=== PATIENT | female | born 1940 | race Caucasian/White ===

== ENCOUNTER 2016-08-07 15:15 | Outpatient (RCR) | payer MEDICARE ==
--- NOTE | 2016-07-14 14:24 | PT/OT/ST INITIAL EVALUATION ---
Department of Health and Human Services Form Approved [facility] Care Financing Administration OMB No. [id number] PLAN OF CARE/ASSESSMENT FOR OUTPATIENT REHABILITATION (Complete for Initial Claims Only) 1. PATIENT'S NAME Ladi Bo 2. ACC # [id number] [facility]. [facility] [id number] 4. PROVIDER NO. [id number] 5. TYPE: PT 6. PRIOR HOSPITALIZATION NA 7. PRIMARY DX Neck pain with left upper extremity radiculopathy. 8. SECONDARY DX NA 9. ONSET DATE Approximately 1 month ago 10. REFERRAL DATE NA 11. SOC. DATE 07/09/2016 12. TIME OF EVAL 10:06 a.m. 12. REFERRING PHYSICIAN Bel Crow PA-C 13. CHARGES/UNITS NA 14. G CODES [id number] 15. PRIOR LEVEL OF FUNCTION; PERTINENT HISTORY (Prior therapy results, reason for referral.) S: Prior to therapy, the patient did consent to today's evaluation and treatment. The patient is a 76-year-old female referred to physical therapy by Bel Crow PA-C to address neck pain with left upper extremity radiculopathy. The patient does rate her overall and general health as good. Description/mechanism of injury: The patient states she is right handed, but approximately 1 month ago began experiencing neck pain. Following the onset of this neck pain, for unknown reasons, the patient began to then have left shoulder pain and she began having pain that went down her entire arm down to her thumb at times. The patient does state this is gradually worsening over time and her neck and shoulder feel "tight." The patient states the pain down her arm is present approximately 50% of the time, but the neck is always stiff and tight feeling with pain present. The patient denies reports of weakness in the left upper extremity and does state moving her head does always bring on her symptoms. Prior level of function: Includes the patient being unlimited in all activity with no neck pain or left upper extremity pain. Current level of function: Currently thee patient is having difficulty getting settled at night in order to go to sleep and any activities that she has to perform, either looking over her shoulder with her neck or reaching overhead wither arms, does increase her pain and symptoms down the left upper extremity. Therapy History: The patient has had no previous physical therapy for this condition. Obstacles to delivery of care are not observed. Pain rating: Maximal pain level of the neck is 5/10 and is constant and the arm is 6/10 and present approximately 50% of the time. The patient describes the pain in the neck as a "stiff feeling" and the arm feels like it is asleep. Aggravating factors: Include bending her head forward. Relieving factors: Include Tylenol and heat. Diagnostic testing: Include an x-ray of the shoulder, which showed no issues. Past medical history: Does include osteoarthritis, previous rotator cuff surgeries, carpal tunnel release, thyroid issues and GERD. Current medications: The patient has provided a list of medications, which is included in the chart. Patient's Goal: The patient's goal for physical therapy is to have normal use of the left upper extremity with no radicular symptoms. 16. INITIAL ASSESSMENT/SAFETY PRECAUTIONS/MEDICAL COMPLICATIONS (Level of function at start of care. Be specific, use objective measures, list problems.) O: APPEARANCE AND OBSERVATION: The patient presents as an older female in apparently healthy condition. She does present to physical therapy with rounded shoulders and slightly forward head. PALPATION: With palpation the patient does have significant increased tone through the left upper trap and levator, as well as at the cervical spine paraspinals. SPECIAL TESTS: Include side-glides, which were within functional limits with no symptom reproduction. The patient did have a positive Spurling test, especially to the left. The patient had negative ulnar, median and radial nerve tension tests. PAs were performed with approximately 50% decrease in mobility throughout the cervical spine, and especially decreased at the CT junction. Shoulder capsule mobility is within normal limits and the patient had no range of motion limitations of the left shoulder and this did not reproduce pain. OUTCOME ASSESSMENT: Neck Disability Index which scored 8% disability. RANGE OF MOTION/FLEXIBILITY: Throughout the cervical spine forward flexion 33 degrees with pain and symptoms down her left upper extremity. Right rotation is 71 degrees; left rotation is 70 degrees with pain and radicular symptoms. Right side bend is 28 degrees, left side bend 19 degrees with pain and radicular symptoms down the left upper extremity and neck extension is 39 degrees. Upper extremity range of motion is within normal limits and grossly equal bilaterally. 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 On the left was 39 pounds, 38 pounds and 41 pounds. Strength throughout the right upper extremity is grossly 4+/5 throughout and the throughout the left upper extremity is grossly 4/5. TODAY'S TREATMENT: Following the initial evaluation therapeutic exercise was performed and issued as a home exercise program with emphasis on stretching and beginning postural stabilization activities. A combo treatment with ultrasound and high volt electrical stimulation was performed to motor contraction in order to fatigue spasm on the left upper extremity and mechanical traction treatment with approximately 30 degrees flexion pull at 20 pounds was performed. The patient did have no radicular symptoms following this treatment. 17. INITIAL POC: (Specify procedures, modalities, short and [facility] goals) A: The patient presents to physical therapy with diagnosis of neck pain with left upper extremity radiculopathy with resultant increased pain in the cervical spine, increased radicular symptoms in the left upper extremity and decreased left cervical spine side-bend. PROGNOSIS: This patient does have a good prognosis with regular therapy attendance and compliance with home exercise program. This patient is expected to benefit from physical therapy services in order to have improved posture, improved strength, for no radicular symptoms for return to full prior activities. INFORMED CONSENT: The diagnosis, prognosis, treatment plan, risks and expected outcomes were discussed with the patient and the patient did agree to today's established plan of care. SHORT TERM GOALS: 1. The patient to be independent and compliant with home exercise program in 1 week. 2. The patient with no complaints of left upper extremity radicular symptoms in 2 weeks to allow sleeping at night. 3. 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 4. The patient with a Neck Disability Index 0% disability in 6 weeks to return to concentration on tasks without limitations. P: Plan to treat patient 2 times per week for 6 weeks in order to address neck pain with left upper extremity radiculopathy. Therapeutic treatments to include modalities to decrease pain, inflammation and spasming. Manual therapy techniques as indicated. Mechanical traction, therapeutic exercise targeting postural and cervical spine strengthening and stabilization, and patient education in home exercise program to be advanced as warranted. 18. FREQUENCY 19. DURATION 20. FUNCTIONAL LEVEL (End of claim period) 21. PHYSICIAN SIGNATURE ? ON FILE OR ENTER HERE: 22. DATE: I certify the need for these services furnished under this plan of care and if for partial hospitalization. 23. CERTIFICATION FROM THROUGH FORM [id number]
[~2016-08-07 15:15] MED LIST: BACI28.32 EXT; CLD600T GT; ESTR50GE TD; NF-ESOM40C PO; VIT1TABL57 PO
== END 2016-08-18 10:20 | disposition home or self-care (01) ==
LOC: PT 15:15
PROVIDERS: ATTEND Physician Assistant Medical
DX: M79.622 Pain in left upper arm (principal); M25.512 Pain in left shoulder; M54.2 Cervicalgia; R20.8 Other disturbances of skin sensation
CPT/HCPCS: 97012; 97032; 97110; 97161; G8981; G8982; G8983